=== PATIENT | female | born 1985 | race Caucasian/White ===

== ENCOUNTER 2019-02-18 16:18 | Emergency (ER) | payer BC ==
[2019-02-18 17:02] VITALS: BP 131/87
--- NOTE | 2019-02-18 18:11 | UC ---
Throat Pain/Nasal [place] HPI - HPI Summary HPI Summary: Patient is a 33-year-old female presenting with sore throat since yesterday. Also notes headache. Notes feeling warm but is unsure fevers. Denies nasal congestion, ear pain, cough. Denies shortness of breath and wheezing. Denies nausea or vomiting. Denies fatigue. Patient states she is taking ibuprofen for pain relief. 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 - History of Current Complaint Chief Complaint: UCRespiratory Stated Complaint: SORE THROAT Hx Obtained From: Patient Hx Last Menstrual Period: 2 weeks ago Onset/Duration: Sudden Onset Severity: Moderate Pain Intensity: 7 Pain Scale Used: 0-10 Numeric - Allergies/Home Medications Allergies/Adverse Reactions: Allergies Allergy/AdvReac Type Severity Reaction Status Date / Time No Known Allergies Allergy Verified 02/18/19 17:02 Home Medications: Home Medications Ibuprofen TAB* [Advil TAB*] 600 mg PO ONCE PRN 02/18/19 [History Confirmed 02/18] PMH/Surg Hx/FS Hx/Imm Hx Previously Healthy: Yes - Surgical History Surgical History: Yes Surgery Procedure, Year, and Place: TUBAL LIGATION. X2 - Family History Known Family History: Positive: Non-Contributory - Social History Alcohol Use: Occasionally Substance Use Type: None Smoking Status (MU): Never Smoked Tobacco Have You Smoked in the Last Year: No - Immunization History Most Recent Influenza Vaccination: declined Most Recent Tetanus Shot: 2012 Most Recent Pneumonia Vaccination: n/a Review of Systems All Other Systems Reviewed And Are Negative: Yes Constitutional: Positive: Fever, Chills Skin: Positive: Negative ENT: Positive: Sore Throat. Negative: Ear Ache, Nasal Discharge, Sinus Congestion, Sinus Pain/Tenderness Respiratory: Positive: Negative. Negative: Shortness Of Breath, Cough Cardiovascular: Positive: Negative Gastrointestinal: Positive: Negative Musculoskeletal: Positive: Negative Neurological: Positive: Headache Physical Exam Triage Information Reviewed: Yes Appearance: Well-Appearing, No Pain Distress, Well-Nourished Vital Signs: Initial Vital Signs Temp 99.8 F 02/18/19 16:59 Pulse 116 02/18/19 16:59 Resp 16 02/18/19 16:59 BP 131/87 02/18/19 16:59 Pulse Ox 100 02/18/19 16:59 Lab Results 02/18/19 Range/Units 18:13 Group A Strep Rapid Positive A (Negative) Vital Signs Reviewed: Yes Eyes: Positive: Conjunctiva Clear ENT: Positive: Hearing grossly normal, Pharyngeal erythema, TMs normal, Tonsillar swelling, Tonsillar exudate, Uvula midline. Negative: Nasal congestion, Nasal drainage, Trismus, Muffled voice, Hoarse voice Neck: Positive: Supple, Nontender, Enlarged Nodes @ - Anterior cervical lymphadenopathy Respiratory Exam: Normal Respiratory: Positive: Lungs clear, Normal breath sounds, No respiratory distress Cardiovascular Exam: Other - Regular rhythm Cardiovascular: Positive: Tachycardia Neurological: Positive: Alert Psychological: Positive: Age Appropriate Behavior Skin Exam: Normal Throat Pain/Nasal Course/Dx - Course Course Of Treatment: Rapid strep test positive. I am treating with amoxicillin for strep throat. Instructed to continue with symptomatic treatment and to follow up with PCP if symptoms persist or go to ED if they worsen. Patient voiced understanding and agreed with the treatment plan. - Differential Dx/Diagnosis Provider Diagnosis: Strep pharyngitis Discharge ED - Sign-Out/Discharge Documenting (check all that apply): Patient Departure All imaging exams completed and their final reports reviewed: No Studies - Discharge Plan Condition: Stable Disposition: HOME Prescriptions: Amoxicillin PO (*) [Amoxicillin 500 MG CAP*] 500 mg PO Q12H #20 cap Patient Education Materials: Strep Throat (ED) Referrals: Care [facility] [Outside] - If Needed [facility]FERR[facility] [Outside] - If Needed Additional Instructions: As discussed, you tested positive for strep throat today. Take Amoxicillin as prescribed for the treatment of strep throat. Replace your toothbrush after taking the antibiotic for 24 hours. You may take ibuprofen and/or tylenol as directed for fever and pain relief. You may use over the counter throat sprays or lozenges for symptomatic relief. Get plenty of rest and fluids. Follow up with your PCP or [facility] listed below if symptoms do not resolve within 10 days. Go to the emergency room if symptoms worsen. - Billing Disposition and Condition Condition: STABLE Disposition: Home
== END 2019-02-18 18:50 | disposition home or self-care (01) ==
LOC: UCEAST 16:18
DX: J02.0 Streptococcal pharyngitis (principal); R51 Headache; R59.0 Localized enlarged lymph nodes
CPT/HCPCS: 87651; 99212; G0463